=== PATIENT | female | born 1965 | race Caucasian/White ===

== ENCOUNTER 2017-02-23 15:23 | Inpatient (IN) | payer OTHER ==
--- NOTE | 2017-02-23 16:07 | PDOC ---
History of Present Illness - History of Present Illness Initial Comments: 02/23/17 16:11 [facility][id number] The patient is a 51 year old female, febrile (Tmax 104), arabic speaking, with a significant past medical history of hypertension and diabetes, who presents to the emergency department with high blood sugar since last night and fever today. She states her blood glucose was 260 last night and she woke up feeling dizzy and shaking this morning. She also reports diffuses body aches and nausea with breakfast. The patients mother reports her daughter complained of feeling feverish yesterday and had a dry cough and sore throat but didn't think anything of it. She denies chest pain, shortness of breath, headache. She denies diarrhea and constipation. She denies dysuria, frequency, urgency and hematuria. Allergies: NKDA Social history: denies toxic habits PCP - Dr. Brewer <Shanda Jurado - Last Filed: 02/23/17 17:17> <Jennifer Harris - Last Filed: 02/23/17 18:26> - General Chief Complaint: Blood Sugar Problem Stated Complaint: HIGH SUGAR Time Seen by Provider: 02/23/17 15:34 Past History <Shanda Jurado - Last Filed: 02/23/17 17:17> - Past Medical History Diabetes: Yes HTN: Yes Psychiatric Problems: Yes (depression) - Psycho/Social/Smoking Cessation Hx Anxiety: No Suicidal Ideation: No Smoking History: Never smoked Have you smoked in the past 12 months: No Information on smoking cessation initiated: No Hx Alcohol Use: No Drug/Substance Use Hx: No Substance Use Type: None <Jennifer Harris - Last Filed: 02/23/17 18:26> - Past Medical History Allergies/Adverse Reactions: Allergies Allergy/AdvReac Type Severity Reaction Status Date / Time No Known Allergies Allergy Verified 02/23/17 15:38 Review of Systems - Review of Systems Able to Perform ROS?: Yes Comments:: 02/23/17 16:12 GENERAL/CONSTITUTIONAL: (+) fever. No chills. No weakness. HEAD, EYES, EARS, NOSE AND THROAT: (+) sore throat. No change in vision. No ear pain or discharge. CARDIOVASCULAR: No chest pain or shortness of breath. RESPIRATORY: No cough, wheezing, or hemoptysis. GASTROINTESTINAL: No nausea, vomiting, diarrhea or constipation. GENITOURINARY: No dysuria, frequency, or change in urination. MUSCULOSKELETAL: No joint or muscle swelling or pain. No neck or back pain. SKIN: No rash NEUROLOGIC: (+) dizziness. No headache, loss of consciousness, or change in strength/sensation. ENDOCRINE: No increased thirst. No abnormal weight change. HEMATOLOGIC/LYMPHATIC: (+) high blood sugar. No anemia, easy bleeding, or history of blood clots. ALLERGIC/IMMUNOLOGIC: No hives or skin allergy. <Shanda Jurado - Last Filed: 02/23/17 17:17> *Physical Exam - Vital Signs Last Vital Signs Temp Pulse Resp BP Pulse Ox 102.9 F H 124 H 18 144/77 100 02/23/17 15:25 02/23/17 15:25 02/23/17 15:25 02/23/17 15:25 02/23/17 15:25 - Physical Exam Comments: 02/23/17 16:13 GENERAL: (+) Awake, alert, and confused. Ill appearing HEAD: (+) facial flush. No signs of trauma EYES: PERRLA, EOMI, sclera anicteric, conjunctiva clear ENT: (+) Dry mucosa. Oropharynx is macerated and erythematous. Auricles normal inspection, hearing grossly normal, nares patent, NECK: Normal ROM, supple, no lymphadenopathy, JVD, or masses LUNGS: (+)tachypneic. clear to auscultation bilaterally. No wheezes, and no crackles HEART: (+) Tachycardic rate and normal rhythm, normal S1 and S2, no murmurs, rubs or gallops ABDOMEN: Soft, nontender, normoactive bowel sounds. No guarding, no rebound. No masses EXTREMITIES: Normal range of motion, no edema. No clubbing or cyanosis. No cords, erythema, or tenderness NEUROLOGICAL: Cranial nerves II through XII grossly intact. Normal speech, normal gait SKIN: Warm, Dry, normal turgor, no rashes or lesions noted. <Shanda Jurado - Last Filed: 02/23/17 17:17> - Vital Signs Last Vital Signs Temp Pulse Resp BP Pulse Ox 102.9 F H 124 H 18 144/77 100 02/23/17 15:25 02/23/17 15:25 02/23/17 15:25 02/23/17 15:25 02/23/17 15:25 <Jennifer Harris - Last Filed: 02/23/17 18:26> ED Treatment Course - LABORATORY CBC & Chemistry Diagram: 02/23/17 16:20 02/23/17 16:20 <Shanda Jurado - Last Filed: 02/23/17 17:17> - LABORATORY CBC & Chemistry Diagram: 02/23/17 16:20 02/23/17 16:20 <Jennifer Harris - Last Filed: 02/23/17 18:26> *DC/Admit/Observation/Transfer <Shanda Jurado - Last Filed: 02/23/17 17:17> - Discharge Dispostion Admit: Yes <Jennifer Harris - Last Filed: 02/23/17 18:26> Diagnosis at time of Disposition: Hyperglycemia Fever Qualifiers: Fever type: unspecified Qualified Code(s): R50.9 - Fever, unspecified Sepsis Qualifiers: Sepsis type: sepsis due to unspecified organism Qualified Code(s): A41.9 - Sepsis, unspecified organism - Discharge Dispostion Condition at time of disposition: Guarded
[2017-02-23] MEDS ORDERED: ACETAMINOPHEN 1000 MG/100 ML VIAL (NON FORMULARY) IVPB ONE (16:19)
[2017-02-23] MEDS ORDERED: SODIUM CHLORIDE 1,000 ML IV STA ×2 (16:19→18:13)
[2017-02-23] MEDS ORDERED: ACETAMINOPHEN INJECTION 100 ML IVPB ONE (16:29)
[2017-02-23 16:57] LABS: MCH 30.3 pg (25.7-33.7); MCHC 33.1 g/dl (32.0-36.0); MEAN CELL VOLUME 91.6 fl (80-96); MEAN PLT VOLUME 10.8 fl (7.5-11.1); PLATELET COUNT 210 K/MM3 (134-434); RDW 14.4 % (11.6-15.6); WHITE BLOOD COUNT 22.9 K/mm3 (4.0-10.0)
[2017-02-23 17:00] LABS: URINE APPEARANCE CLEAR; URINE BILIRUBIN NEGATIVE (NEGATIVE); URINE COLOR YELLOW; URINE GLUCOSE (UA) 1+ (NEGATIVE); URINE KETONE 1+ (NEGATIVE); URINE LEUK ESTERASE NEGATIVE (NEGATIVE); URINE NITRITE NEGATIVE (NEGATIVE); URINE UROBILINOGEN NEGATIVE E.U./dl (0.2-1.0)
[2017-02-23 17:09] LABS: URINE BLOOD 1+ (NEGATIVE); URINE PROTEIN 2+ (NEGATIVE)
[2017-02-23 17:18] LABS: ALBUMIN 3.3 g/dl (3.4-5.0); ANION GAP 13 (8-16); CALCIUM 8.7 mg/dL (8.5-10.1); CO2 22 mmol/L (21-32); COCKROFT - GAULT 108.1625; CREATININE 0.9 mg/dL (0.55-1.02); GLUCOSE,RANDOM 194 mg/dL (74-106); SGOT/AST 26 U/L (15-37); SGPT/ALT 29 U/L (12-78)
[2017-02-23 17:22] LABS: ALK PHOS 87 U/L (45-117); BILIRUBIN,TOTAL 0.4 mg/dL (0.2-1.0); TOT PROT 7.8 g/dl (6.4-8.2); TROPONIN I < 0.02 ng/ml (0.00-0.05)
[2017-02-23 17:22] LABS: URINE MUCUS RARE; URINE RBC 2 /hpf (0-3); URINE WBC 1 /hpf (3-5)
[2017-02-23 17:31] LABS: ACETONE SERUM NEGATIVE (NEGATIVE)
[2017-02-23 17:34] LABS: OSMOLALITY,SERUM 279 mosm/kg (278-305)
[2017-02-23] MEDS ORDERED: PIPERACILLIN/TAZOB 3.375 GM 3.375 GM in DEXTROSE 5%-WATER - 50 ML IVPB ONE (18:12)
[2017-02-23] MEDS ORDERED: VANCOMYCIN 1,000 MG in DEXTROSE 5%-WATER - 250 ML IVPB ONE (18:12)
[2017-02-23] MEDS ORDERED: FLUCONAZOLE 100 MG TABLET (UD) PO ONE (18:42)
[2017-02-23] MEDS ORDERED: FLUCONAZOLE 100 MG TABLET (UD) ONE (18:53)
[2017-02-23] MEDS ORDERED: VANCOMYCIN 1 GRAM (PRE-DOCKED) 250 ML IVPB ONE (18:54)
[2017-02-23] MEDS ORDERED: PIPERACILLIN/TAZOB 3.375 GM 50 ML IVPB ONE (18:54)
--- NOTE | 2017-02-23 19:22 | HP ---
CHIEF COMPLAINT: flu symptoms PCP: Dr. Busch HISTORY OF PRESENT ILLNESS: 51 yr old woman with NIDDM, HTN, Depression, brought in by family because she was having "flu-like symptoms" this morning. She had nausea, fever, and dry intermitting mild cough, dizziness with a fasting BGM of 158 which is high for her(usual fasting bgm is 120-130's). She was in usual state of health yesterday evening. For past 2-3 months she has had burning with urination, past 3 days she noticed blood in her urine. For past 3 days she has noticed blood upon wiping after defecating, this is first episode. denies constipation/diarrhea, chest pain, palpitations, hemorrhoids, foul smelling urine, vaginal discharge, sob, difficulty swallowing, flank pain, vomiting. she has lost 4lbs over the past 2 months, unintentionally. Sees [employer] furnace every 6 months. denies sexual activity. ER course was notable for: (1) sepsis protocol, lactic acid 2.546, IVF (2) chest xray (3) vanc and zosyn iv (4) smyth placement Recent Travel: none PAST MEDICAL HISTORY: NIDDM HTN Depression - for past 1 yr since the of her father, in-patient tx at [facility] "few days" last year Hypothyroidism HLD PAST SURGICAL HISTORY: denies Social History: Smoking: never Alcohol: denies Drugs: denies Family History: denies HTN, DM, cancer, psych disorders. Allergies No Known Allergies Allergy (Verified 02/23/17 15:38) HOME MEDICATIONS: Home Medications Medication Instructions Recorded Amlodipine Besylate [Norvasc -] 5 mg PO DAILY 02/23/17 Benztropine Mesylate [Cogentin -] 2 mg PO BID 02/23/17 Calcium Carbonate/Vitamin D3 1 each PO BID 02/23/17 [Calcium 600+D Softgel] Cholecalciferol (Vitamin D3) 50,000 unit PO WEEKLY 02/23/17 [Vitamin D3] Divalproex Sodium 500 mg PO BID 02/23/17 Enalapril Maleate [Vasotec -] 5 mg PO DAILY 02/23/17 Levothyroxine Sodium [Levo-T] 25 mcg PO DAILY 02/23/17 Levothyroxine [Synthroid -] 50 mcg PO DAILY 02/23/17 Metformin HCl 500 mg PO TID 02/23/17 Perphenazine [Trilafon] 4 mg PO BID 02/23/17 Propranolol HCl [Inderal] 20 mg PO BID 02/23/17 Rosuvastatin Calcium [Crestor] 20 mg PO DAILY 02/23/17 REVIEW OF SYSTEMS CONSTITUTIONAL: Present: fever, Absent: chills, diaphoresis, generalized weakness, malaise, loss of appetite, weight change HEENT: Absent: rhinorrhea, nasal congestion, throat pain, throat swelling, difficulty swallowing, mouth swelling, ear pain, eye pain, visual changes CARDIOVASCULAR: Absent: chest pain, syncope, palpitations, irregular heart rate, lightheadedness , peripheral edema RESPIRATORY: Present: cough Absent: shortness of breath, dyspnea with exertion, orthopnea, wheezing, stridor , hemoptysis GASTROINTESTINAL: Present: nausea Absent: abdominal pain, abdominal distension, nausea, vomiting, diarrhea, constipation, melena, hematochezia GENITOURINARY: Present: dysuria, hematuria Absent: frequency, urgency, hesitancy, hematuria, flank pain, genital pain MUSCULOSKELETAL: Absent: myalgia, arthralgia, joint swelling, back pain, neck pain SKIN: Absent: rash, itching, pallor HEMATOLOGIC/IMMUNOLOGIC: Absent: easy bleeding, easy bruising, lymphadenopathy, frequent infections ENDOCRINE: Absent: unexplained weight gain, unexplained weight loss, heat intolerance, cold intolerance NEUROLOGIC: Absent: headache, focal weakness or paresthesias, dizziness, unsteady gait, seizure, mental status changes, bladder or bowel incontinence PSYCHIATRIC: Absent: anxiety, depression, suicidal or homicidal ideation, hallucinations. PHYSICAL EXAMINATION Vital Signs - 24 hr 02/23/17 02/23/17 02/23/17 15:23 15:25 16:07 Temperature 104.9 F H 102.9 F H Pulse Rate 117 H 124 H Pulse Rate [ 101 H Apical] Respiratory 20 18 20 Rate Blood Pressure 144/77 Blood Pressure 111/69 [Right Arm] O2 Sat by Pulse 97 100 100 Oximetry (%) 02/23/17 02/23/17 17:13 19:16 Temperature Pulse Rate Pulse Rate [ 109 H 93 H Apical] Respiratory 28 H 20 Rate Blood Pressure Blood Pressure 127/82 116/78 [Right Arm] O2 Sat by Pulse 96 98 Oximetry (%) GENERAL: Awake, alert, and fully oriented, in no acute distress. HEAD: Normal with no signs of trauma. no sinus tenderness. Face: cushingoid facies. blanching facial flushing in malar and forehead distributation. EYES: Pupils equal, round and reactive to light, mildly dilates 4-5mm pupils, extraocular movements intact, sclera anicteric, conjunctiva clear. No lid lag. EARS, NOSE, THROAT: Ears normal, nares patent, oropharynx with erythema. dry mucous membranes. no exudates. NECK: Normal range of motion, supple without lymphadenopathy, or masses. nontender neck. CHEST: upper b/l chest tenderness to palpation, sternum pain with palpation. LUNGS: Breath sounds equal, clear to auscultation bilaterally. No wheezes, and no crackles. No accessory muscle use. HEART: Regular rate and rhythm, normal S1 and S2 without murmur, rub or gallop. ABDOMEN: obese, Soft, mildly tender in llq and epigastrium, distended, normoactive bowel sounds, no guarding, no rebound, no masses. MUSCULOSKELETAL: Normal range of motion at all joints. No bony deformities or tenderness. No CVA tenderness. UPPER EXTREMITIES: 2+ pulses, warm, well-perfused. No cyanosis. No clubbing. No peripheral edema. LOWER EXTREMITIES: 2+ pulses, warm, well-perfused. No calf tenderness. No peripheral edema. NEUROLOGICAL: Cranial nerves II-XII intact. Normal speech. Normal gait. PSYCHIATRIC: Cooperative. Good eye contact. Appropriate mood and affect. SKIN: Warm, dry, normal turgor, no lesions noted, normal capillary refill. Laboratory Results - last 24 hr 02/23/17 02/23/17 02/23/17 16:20 16:20 16:20 WBC 22.9 H RBC 4.32 Hgb 13.1 Hct 39.5 MCV 91.6 MCHC 33.1 RDW 14.4 Plt Count 210 MPV 10.8 Neutrophils % 75.0 Lymphocytes % 16.0 Monocytes % 7.0 Eosinophils % 0.0 Basophils % 0.0 Band Neutrophils 2.0 Sodium 131 L Potassium 3.9 Chloride 96 L Carbon Dioxide 22 Anion Gap 13 BUN 14 Creatinine 0.9 Creat Clearance w eGFR > 60 POC Glucometer Random Glucose 194 H Serum Osmolality Lactic Acid 2.546 H* Calcium 8.7 Total Bilirubin 0.4 AST 26 ALT 29 Alkaline Phosphatase 87 Creatine Kinase 179 CK-MB (CK-2) < 1.000 Troponin I < 0.02 Total Protein 7.8 Albumin 3.3 L Urine Color Urine Appearance Urine pH Ur Specific Sutter Urine Protein Urine Glucose (UA) Urine Ketones Urine Blood Urine Nitrite Urine Bilirubin Urine Urobilinogen Ur Leukocyte Esterase Urine RBC Urine WBC Urine Mucus Acetone, Qual Blood Type Antibody Screen Spec Expiration Date 02/23/17 02/23/17 02/23/17 16:20 16:20 16:22 WBC RBC Hgb Hct MCV MCHC RDW Plt Count MPV Neutrophils % Lymphocytes % Monocytes % Eosinophils % Basophils % Band Neutrophils Sodium Potassium Chloride Carbon Dioxide Anion Gap BUN Creatinine Creat Clearance w eGFR POC Glucometer [id number] Random Glucose Serum Osmolality 279 Lactic Acid Calcium Total Bilirubin AST ALT Alkaline Phosphatase Creatine Kinase CK-MB (CK-2) Troponin I Total Protein Albumin Urine Color Urine Appearance Urine pH Ur Specific Sutter Urine Protein Urine Glucose (UA) Urine Ketones Urine Blood Urine Nitrite Urine Bilirubin Urine Urobilinogen Ur Leukocyte Esterase Urine RBC Urine WBC Urine Mucus Acetone, Qual Negative L Blood Type Cancelled Antibody Screen Cancelled Spec Expiration Date Cancelled 02/23/17 16:47 WBC RBC Hgb Hct MCV MCHC RDW Plt Count MPV Neutrophils % Lymphocytes % Monocytes % Eosinophils % Basophils % Band Neutrophils Sodium Potassium Chloride Carbon Dioxide Anion Gap BUN Creatinine Creat Clearance w eGFR POC Glucometer Random Glucose Serum Osmolality Lactic Acid Calcium Total Bilirubin AST ALT Alkaline Phosphatase Creatine Kinase CK-MB (CK-2) Troponin I Total Protein Albumin Urine Color Yellow Urine Appearance Clear Urine pH 5.0 Ur Specific Sutter 1.024 Urine Protein 2+ H Urine Glucose (UA) 1+ H Urine Ketones 1+ H Urine Blood 1+ H Urine Nitrite Negative Urine Bilirubin Negative Urine Urobilinogen Negative Ur Leukocyte Esterase Negative Urine RBC 2 Urine WBC 1 Urine Mucus Rare Acetone, Qual Blood Type Antibody Screen Spec Expiration Date Active Medications Acetaminophen (Tylenol -) 650 mg PO Q6H PRN PRN Reason: FEVER OR PAIN Amlodipine Besylate (Norvasc -) 5 mg PO DAILY [facility] Benztropine Mesylate (Cogentin -) 2 mg PO BID [facility] Last Admin: 02/23/17 22:42 Dose: 2 mg Calcium Carbonate/Cholecalciferol (Os-Kelvin 500+D -) 1 tab PO BID [facility] Last Admin: 02/23/17 22:42 Dose: 1 tab Divalproex Sodium (Depakote -) 500 mg PO BID [facility] Last Admin: 02/23/17 22:42 Dose: 500 mg Enalapril Maleate (Vasotec -) 5 mg PO DAILY [facility] Ergocalciferol (Drisdol -) 50,000 unit PO Mo@10 [facility] Sodium Chloride (Normal Saline -) 1,000 mls @ 125 mls/hr IV ASDIR [facility] Insulin Aspart (Novolog Vial Sliding Scale -) 1 vial SQ [facility] PRN Reason: Protocol Last Admin: 02/23/17 22:43 Dose: 2 units Levothyroxine Sodium (Synthroid -) 25 mcg PO DAILY@0700 [facility] Levothyroxine Sodium (Synthroid -) 50 mcg PO DAILY@0700 [facility] Penicillin V Potassium (Pen Vee K -) 500 mg PO TID [facility] Last Admin: 02/23/17 23:55 Dose: 500 mg Perphenazine (Trilafon) 4 mg PO BID [facility] Last Admin: 02/23/17 22:42 Dose: 4 mg Propranolol HCl (Inderal -) 20 mg PO BID [facility] Last Admin: 02/23/17 22:43 Dose: 20 mg Rosuvastatin Calcium (Crestor -) 20 mg PO DAILY [facility] ASSESSMENT/PLAN: 51 yr old woman with HTN, NIDDM, depression presents with fever and nausea, found to have elevated wbc, fever 104.9, lactic acidosis, admitted for sepsis. - rapid strep ag positive - can likely remove smyth in the AM if making adequate urine #Sepsis from group a strep pharyngitis (fever, tachycardia, wbc, source) - Penicillin V 500mg q8hr for 10 days - IVF NS @125mls - repeat labs in the AM - monitor vitals - tylenol po for fevers - blood/urine cxs pending - cephacol mm prn q6hr for throat pain #Abdominal pain - FOBT pending - consider imaging if continues to complain of abdominal pain, low suspicion for diverticulitis, GIB or GI malignancy, H/H currently normal, trend in the AM - outpatient referral for GI follow-up #NIDDM - HbA1c - hold metform - NISS, and BGM at [facility] - diabetic diet #Depression - currently denies symptoms/SI or HI, monitor - depakote 500mg po bid - cogentin 2mg po bid - trilafon 4mg po bid #HTN - propranolol 20mg po bid - vasotec 5mg po daily - norvasc 5mg po daily #Hypothyroidism - levothyroxine 75mcg po daily #Obesity - provide healthy eating habits and exercise for diabetic pts upon discharge #diet: low sodium/diabetic DVT - scd's pending FOBT Visit type - Emergency Visit Emergency Visit: Yes ED Registration Date: 02/23/17 Care time: The patient presented to the Emergency Department on the above date and was hospitalized for further evaluation of their emergent condition. - New Patient This patient is new to me today: Yes Date on this admission: 02/23/17 - Critical Care Critical Care patient: No
[2017-02-23] MEDS ORDERED: metFORMIN HCL 500 MG TABLET (FP) PO SCH (21:15)
[2017-02-23] MEDS ORDERED: BENZTROPINE MESYLATE 1 MG TABLET (FP) PO SCH (22:00)
[2017-02-23] MEDS ORDERED: ACETAMINOPHEN 325 MG TABLET (FP) PO PRN (22:19)
[2017-02-23] MEDS: BENZTROPINE MESYLATE 2 MG TABLET PO SCH (22:42)
[2017-02-23] MEDS: PERPHENAZINE 4 MG TABLET PO SCH (22:42)
[2017-02-23] MEDS: DIVALPROEX SODIUM 500 MG TABLET E.C. PO SCH (22:42)
[2017-02-23] MEDS: CALCIUM 500MG/VIT-D 200 UNITS COMBO TABLET (FP) PO SCH (22:42)
[2017-02-23] MEDS: PROPRANOLOL HCL 10 MG TABLET (FP) PO SCH (22:43)
[2017-02-23] MEDS: INSULIN SLIDING SCALE (NOVOLOG) 1 VIAL SQ SCH (22:43)
--- NOTE | 2017-02-23 23:12 | PN ---
<Codi Irby - Last Filed: 02/23/17 23:12> Teaching Attending Note Name of Resident: Cody Mauricio <Kali Montenegro - Last Filed: 02/24/17 00:03> Teaching Attending Note ATTENDING PHYSICIAN STATEMENT I saw and evaluated the patient. I reviewed the resident's note and discussed the case with the resident. I agree with the resident's findings and plan as documented. SUBJECTIVE: 51 year old female presents to ER for evaluation of malaise, fever, myalgia, cough, and sore throat x24h. PMH diabetes, hypertension, hyperthyroidism, hyperlipidemia, questionable history of bipolar disorder Surgical History: None Allergies: None Social: Denies smoking. Denies drugs. Denies alcohol. Family history: Noncontributory Medications: Home Medication List Medication Instructions Recorded Confirmed Type Amlodipine Besylate [Norvasc -] 5 mg PO DAILY 02/23/17 02/23/17 History Benztropine Mesylate [Cogentin -] 2 mg PO BID 02/23/17 02/23/17 History Calcium Carbonate/Vitamin D3 1 each PO BID 02/23/17 02/23/17 History [Calcium 600+D Softgel] Cholecalciferol (Vitamin D3) 50,000 unit PO WEEKLY 02/23/17 02/23/17 History [Vitamin D3] Divalproex Sodium 500 mg PO BID 02/23/17 02/23/17 History Enalapril Maleate [Vasotec -] 5 mg PO DAILY 02/23/17 02/23/17 History Levothyroxine Sodium [Levo-T] 25 mcg PO DAILY 02/23/17 02/23/17 History Levothyroxine [Synthroid -] 50 mcg PO DAILY 02/23/17 02/23/17 History Metformin HCl 500 mg PO TID 02/23/17 02/23/17 History Perphenazine [Trilafon] 4 mg PO BID 02/23/17 02/23/17 History Propranolol HCl [Inderal] 20 mg PO BID 02/23/17 02/23/17 History Rosuvastatin Calcium [Crestor] 20 mg PO DAILY 02/23/17 02/23/17 History Active Medications Generic Name Dose Route Start Last Admin Trade Name Freq PRN Reason Stop Dose Admin Acetaminophen 650 mg 02/23/17 22:19 Tylenol - PO Q6H PRN FEVER OR PAIN Amlodipine Besylate 5 mg 02/24/17 10:00 Norvasc - PO DAILY [facility] Benztropine Mesylate 2 mg 02/23/17 22:00 02/23/17 22:42 Cogentin - PO 2 mg BID [facility] Administration Calcium Carbonate/Cholecalciferol 1 tab 02/23/17 22:00 02/23/17 22:42 Os-Kelvin 500+D - PO 1 tab BID [facility] Administration Divalproex Sodium 500 mg 02/23/17 22:00 02/23/17 22:42 Depakote - PO 500 mg BID [facility] Administration Enalapril Maleate 5 mg 02/24/17 10:00 Vasotec - PO DAILY [facility] Ergocalciferol 50,000 unit 03/01/17 10:00 Drisdol - PO Mo@10 [facility] Sodium Chloride 1,000 mls @ 125 mls/hr 02/23/17 20:45 Normal Saline - IV ASDIR [facility] Insulin Aspart 1 vial 02/23/17 22:00 02/23/17 22:43 Novolog Vial Sliding Scale - SQ 2 units ACHS [facility] Administration Protocol Levothyroxine Sodium 25 mcg 02/24/17 07:00 Synthroid - PO DAILY@0700 [facility] Levothyroxine Sodium 50 mcg 02/24/17 07:00 Synthroid - PO DAILY@0700 [facility] Metformin HCl 500 mg 02/23/17 21:15 02/23/17 22:42 Glucophage - PO 500 mg TIDAC [facility] Administration Penicillin V Potassium 500 mg 02/23/17 23:15 Pen Vee K - PO Q8H [facility] Perphenazine 4 mg 02/23/17 22:00 02/23/17 22:42 Trilafon PO 4 mg BID [facility] Administration Propranolol HCl 20 mg 02/23/17 22:00 02/23/17 22:43 Inderal - PO 20 mg BID [facility] Administration Rosuvastatin Calcium 20 mg 02/24/17 10:00 Crestor - PO DAILY [facility] OBJECTIVE: Vital Signs: Last Vital Signs Temp Pulse Resp BP Pulse Ox 102.9 F H 95 H 22 136/65 97 02/23/17 15:25 02/23/17 20:54 02/23/17 20:54 02/23/17 20:54 02/23/17 20:54 GENERAL: Awake, alert, and fully oriented, in no acute distress HEENT: Atraumatic. PERRLA, EOMI. Moist mucosa. No JVD LUNGS: No distress, speaks full sentences, clear to auscultation bilaterally HEART: Regular rate and rhythm, normal S1 and S2, no murmurs, rubs or gallops, peripheral pulses normal and equal bilaterally. ABDOMEN: (+) Tenderness on palpation of epigastric area and lower left quadrant. No guarding, no rebound. No masses EXTREMITIES: Normal inspection, Normal range of motion, no edema. No clubbing or cyanosis. NEUROLOGICAL: Cranial nerves II through XII grossly intact. Normal speech, normal gait, no focal sensorimotor deficits SKIN: Warm, Dry, normal turgor, no rashes or lesions noted. Labs: CBCD WBC 22.9 K/mm3 (4.0-10.0) H 02/23/17 16:20 RBC 4.32 M/mm3 (3.60-5.2) 02/23/17 16:20 Hgb 13.1 GM/dL (10.7-15.3) 02/23/17 16:20 Hct 39.5 % (32.4-45.2) 02/23/17 16:20 MCV 91.6 fl (80-96) 02/23/17 16:20 MCHC 33.1 g/dl (32.0-36.0) 02/23/17 16:20 RDW 14.4 % (11.6-15.6) 02/23/17 16:20 Plt Count 210 K/MM3 (134-434) 02/23/17 16:20 MPV 10.8 fl (7.5-11.1) 02/23/17 16:20 CMP Sodium 131 mmol/L (136-145) L 02/23/17 16:20 Potassium 3.9 mmol/L (3.5-5.1) 02/23/17 16:20 Chloride 96 mmol/L (98-107) L 02/23/17 16:20 Carbon Dioxide 22 mmol/L (21-32) 02/23/17 16:20 Anion Gap 13 (8-16) 02/23/17 16:20 BUN 14 mg/dL (7-18) 02/23/17 16:20 Creatinine 0.9 mg/dL (0.55-1.02) 02/23/17 16:20 Creat Clearance w eGFR > 60 (>60) 02/23/17 16:20 Calcium 8.7 mg/dL (8.5-10.1) 02/23/17 16:20 Total Bilirubin 0.4 mg/dL (0.2-1.0) 02/23/17 16:20 AST 26 U/L (15-37) 02/23/17 16:20 ALT 29 U/L (12-78) 02/23/17 16:20 Alkaline Phosphatase 87 U/L (45-117) 02/23/17 16:20 Total Protein 7.8 g/dl (6.4-8.2) 02/23/17 16:20 Albumin 3.3 g/dl (3.4-5.0) L 02/23/17 16:20 Throat culture positive for hemolytic strep. Imaging: CXR-no acute pulmonary disease ASSESSMENT AND PLAN: 1. 51 year old female with sepsis secondary to streptococcal pharyngitis. - Penicillin B administered - Repeat lactate levels in AM - IVF - Hemoglobin A1C Admit to med surg. Documentation prepared by Kali Montenegro, acting as medical reviewer for Dr. Mahamed MD.
[2017-02-23] MEDS: PENICILLIN V POTASSIUM 500 MG TABLET PO SCH (23:55)
[2017-02-24 00:43] VITALS: BMI 34.3
[2017-02-24] MEDS ORDERED: BENZOCAINE/MENTH/CETYLPYRD CL 1 EACH LOZENGE MM PRN (05:13)
[2017-02-24] MEDS: INSULIN SLIDING SCALE (NOVOLOG) 1 VIAL SQ SCH ×4 (06:09→21:16)
[2017-02-24] MEDS: SODIUM CHLORIDE 1,000 ML IV SCH ×4 (06:09→22:46)
[2017-02-24] MEDS: PENICILLIN V POTASSIUM 500 MG TABLET PO SCH (06:09)
[2017-02-24] MEDS: LEVOTHYROXINE NA 50 MCG TABLET (FP) PO SCH (06:13)
[2017-02-24] MEDS: LEVOTHYROXINE NA 25 MCG TABLET (FP) PO SCH (06:13)
[2017-02-24 07:51] LABS: BASOPHIL 0.3 % (0-2.0); MCH 31.2 pg (25.7-33.7); MCHC 33.8 g/dl (32.0-36.0); MEAN CELL VOLUME 92.3 fl (80-96); MEAN PLT VOLUME 9.9 fl (7.5-11.1); NEUTROPHILS 76.9 % (42.8-82.8); PLATELET COUNT 181 K/MM3 (134-434); RDW 14.6 % (11.6-15.6); WHITE BLOOD COUNT 22.8 K/mm3 (4.0-10.0)
[2017-02-24 08:08] LABS: INR 1.51 (0.82-1.09); PROTHROMBIN TIME (PATIENT) 16.8 SEC (9.98-11.88)
--- NOTE | 2017-02-24 08:13 | EKG ---
Test Reason : Blood Pressure : / mmHG Vent. Rate : 112 BPM Atrial Rate : 112 BPM P-R Int : 128 ms QRS Dur : 086 ms QT Int : 322 ms P-R-T Axes : 044 -23 -05 degrees QTc Int : 439 ms SINUS TACHYCARDIA POSSIBLE LEFT ATRIAL ENLARGEMENT NONSPECIFIC T WAVE ABNORMALITY ABNORMAL ECG NO PREVIOUS ECGS AVAILABLE Confirmed by ROSS LYNN, ANTONIO ([id number]) on 02/24/2017 8:13:09 AM Referred By: Confirmed By:ANTONIO HAWKINS MD
[2017-02-24 08:40] LABS: CALCIUM 8.4 mg/dL (8.5-10.1); COCKROFT - GAULT 160.6415; CREATININE 0.6 mg/dL (0.55-1.02); MAGNESIUM 1.5 mg/dL (1.8-2.4); PHOSPHOROUS 2.3 mg/dL (2.5-4.9)
[2017-02-24] MEDS ORDERED: ENOXAPARIN NA (PORCINE) 40 MG/0.4 ML DISP.SYRIN SQ SCH (10:00)
[2017-02-24] MEDS ORDERED: ROSUVASTATIN CA 10 MG TABLET (FP) ONE (10:10)
[2017-02-24] MEDS ORDERED: PT OWN MED DRAWER 7, Y5N ONE ×3 (10:12→21:18)
[2017-02-24] MEDS: CALCIUM 500MG/VIT-D 200 UNITS COMBO TABLET (FP) PO SCH ×2 (10:18→21:19)
[2017-02-24] MEDS: amLODIPine BESYLATE 5 MG TABLET (FP) PO SCH (10:19)
[2017-02-24] MEDS: DIVALPROEX SODIUM 500 MG TABLET E.C. PO SCH ×2 (10:19→21:19)
[2017-02-24] MEDS: ROSUVASTATIN CA 20 MG TABLET (FP) PO SCH (10:19)
[2017-02-24] MEDS: BENZTROPINE MESYLATE 2 MG TABLET PO SCH ×2 (10:20→21:19)
[2017-02-24] MEDS: PROPRANOLOL HCL 10 MG TABLET (FP) PO SCH ×2 (10:21→21:19)
[2017-02-24] MEDS: PERPHENAZINE 4 MG TABLET PO SCH ×2 (10:22→21:19)
[2017-02-24] MEDS: ENALAPRIL MALEATE 5 MG TABLET (FP) PO SCH (10:23)
[2017-02-24] MEDS ORDERED: INSULIN (NOVOLOG) ASPART 100 UNITS/ML 10ML VIAL ONE ×2 (12:06→16:57)
[2017-02-24] MEDS: LEVOFLOXACIN 750 MG IVPB 150 ML IVPB SCH (12:18)
--- NOTE | 2017-02-24 15:55 | PN ---
Physical Exam: SUBJECTIVE: Patient seen and examined, feeling better, denies fever, chills, n, v, abdominal pain, hematuria or dysuria. Admits to minor odynophagia. OBJECTIVE: Vital Signs Period Temp Pulse Resp BP Sys/Chou Pulse Ox Last 24 Hr 98.4 F-100.2 F 93-106 18-22 111-138/61-78 97-99 GENERAL: The patient is obese, awake, alert, and fully oriented, in no acute distress. HEAD: Normal with no signs of trauma. EYES: PERRL, extraocular movements intact, sclera anicteric, conjunctiva clear. No ptosis. ENT: Ears normal, nares patent, oropharynx clear without exudates, moist mucous membranes. NECK: Trachea midline, full range of motion, supple. LUNGS: decreased breath sounds equal, clear to auscultation bilaterally, no wheezes, no crackles, no accessory muscle use. HEART: Regular rate and rhythm, S1, S2 without murmur, rub or gallop. ABDOMEN: Soft, nontender, nondistended, normoactive bowel sounds, no guarding, no rebound, no hepatosplenomegaly, no masses. EXTREMITIES: 2+ pulses, warm, well-perfused, no edema. NEUROLOGICAL: Cranial nerves II through XII grossly intact. Normal speech, gait not observed. PSYCH: Normal mood, normal affect. SKIN: Warm, dry, normal turgor, no rashes or lesions noted Laboratory Results - last 24 hr 02/23/17 02/23/17 02/24/17 18:36 22:41 06:08 WBC RBC Hgb Hct MCV MCHC RDW Plt Count MPV Neutrophils % Lymphocytes % Monocytes % Eosinophils % Basophils % INR PTT (Actin FS) Sodium Potassium Chloride Carbon Dioxide Anion Gap BUN Creatinine POC Glucometer 200 154 Random Glucose Hemoglobin A1c % Lactic Acid 1.938 Calcium Phosphorus Magnesium Stool Occult Blood 02/24/17 02/24/17 02/24/17 06:15 06:15 06:15 WBC 22.8 H RBC 3.82 Hgb 11.9 Hct 35.3 MCV 92.3 MCHC 33.8 RDW 14.6 Plt Count 181 MPV 9.9 Neutrophils % 76.9 Lymphocytes % 14.2 Monocytes % 8.6 Eosinophils % 0.0 Basophils % 0.3 D INR 1.51 H PTT (Actin FS) 26.0 L Sodium 137 Potassium 3.7 Chloride 101 Carbon Dioxide 22 Anion Gap 14 BUN 9 D Creatinine 0.6 D POC Glucometer Random Glucose 148 H D Hemoglobin A1c % Lactic Acid Calcium 8.4 L Phosphorus 2.3 L Magnesium 1.5 L Stool Occult Blood 02/24/17 02/24/17 02/24/17 06:15 08:00 12:02 WBC RBC Hgb Hct MCV MCHC RDW Plt Count MPV Neutrophils % Lymphocytes % Monocytes % Eosinophils % Basophils % INR PTT (Actin FS) Sodium Potassium Chloride Carbon Dioxide Anion Gap BUN Creatinine POC Glucometer 400 Random Glucose Hemoglobin A1c % 10.9 H Lactic Acid Calcium Phosphorus Magnesium Stool Occult Blood Negative Active Medications Generic Name Dose Route Start Last Admin Trade Name Freq PRN Reason Stop Dose Admin Acetaminophen 650 mg 02/23/17 22:19 02/24/17 12:22 Tylenol - PO 650 mg Q6H PRN Administration FEVER OR PAIN Amlodipine Besylate 5 mg 02/24/17 10:00 02/24/17 10:19 Norvasc - PO 5 mg DAILY FRANKLYN Administration Benzocaine/Menthol 1 each 02/24/17 05:13 Cepacol Lozenge - MM Q6H PRN SORE THROAT Benztropine Mesylate 2 mg 02/23/17 22:00 02/24/17 10:20 Cogentin - PO 2 mg BID FRANKLYN Administration Calcium Carbonate/Cholecalciferol 1 tab 02/23/17 22:00 02/24/17 10:18 Os-Kelvin 500+D - PO 1 tab BID FRANKLYN Administration Divalproex Sodium 500 mg 02/23/17 22:00 02/24/17 10:19 Depakote - PO 500 mg BID FRANKLYN Administration Enalapril Maleate 5 mg 02/24/17 10:00 02/24/17 10:23 Vasotec - PO 5 mg DAILY FRANKLYN Administration Ergocalciferol 50,000 unit 03/01/17 10:00 Drisdol - PO Mo@10 FRANKLYN Sodium Chloride 1,000 mls @ 125 mls/hr 02/23/17 20:45 02/24/17 14:15 Normal Saline - IV 125 mls/hr ASDIR FRANKLYN Administration Levofloxacin 150 mls @ 100 mls/hr 02/24/17 11:30 02/24/17 12:18 Levaquin 750 Mg Premixed Ivpb - IVPB 100 mls/hr DAILY FRANKLYN Administration Insulin Aspart 1 vial 02/23/17 22:00 02/24/17 12:08 Novolog Vial Sliding Scale - SQ 10 units [facility] FRANKLYN Administration Protocol Levothyroxine Sodium 25 mcg 02/24/17 07:00 02/24/17 06:13 Synthroid - PO 25 mcg DAILY@0700 FRANKLYN Administration Levothyroxine Sodium 50 mcg 02/24/17 07:00 02/24/17 06:13 Synthroid - PO 50 mcg DAILY@0700 FRANKLYN Administration Perphenazine 4 mg 02/23/17 22:00 02/24/17 10:22 Trilafon PO 4 mg BID FRANKLYN Administration Propranolol HCl 20 mg 02/23/17 22:00 02/24/17 10:21 Inderal - PO 20 mg BID FRANKLYN Administration Rosuvastatin Calcium 20 mg 02/24/17 10:00 02/24/17 10:19 Crestor - PO 20 mg DAILY FRANKLYN Administration ASSESSMENT/PLAN: This is a 51 year old female with a past medical history of diabetes, htn, depression presented with fever, chills, n, v, found to be septic secondary to strep throat. #sepsis secondary to group A strep pharyngitis: -sepsis protocol activated; IVF; stat dose of IV antibiotics; lactic acid trended down after fluids -rapid strep test positive -blood and urine cultures pending -continue with IV Levaquin 750mg qd -cephacol mm prn q6hr for throat pain #Abdominal pain : resolved #admits to dark stools x3 days -FOBT negative -rectal exam +for external hemorrhoids: no mass felt -she has never had colonoscopy; f.u as outpatient #NIDDM - HbA1c 10.9 - NISS, and BGM at [facility] - diabetic diet #Depression - currently denies symptoms/SI or HI, monitor - depakote 500mg po bid - cogentin 2mg po bid - trilafon 4mg po bid #HTN - propranolol 20mg po bid - vasotec 5mg po daily - norvasc 5mg po daily #Hypothyroidism - levothyroxine 75mcg po daily #Obesity - provide healthy eating habits and exercise for diabetic pts upon discharge FEN: Fluids: po Electrolytes: wnl Diet: diabetic VTE prophylaxis: lovenox Disposition: IV antibiotic . cultures pending Visit type - Emergency Visit Emergency Visit: Yes ED Registration Date: 02/23/17 Care time: The patient presented to the Emergency Department on the above date and was hospitalized for further evaluation of their emergent condition. - New Patient This patient is new to me today: Yes Date on this admission: 02/24/17 - Critical Care Critical Care patient: No
--- NOTE | 2017-02-24 17:59 | PN ---
Teaching Attending Note Name of Resident: Susana Perez ATTENDING PHYSICIAN STATEMENT I saw and evaluated the patient. I reviewed the resident's note and discussed the case with the resident. I agree with the resident's findings and plan as documented. SUBJECTIVE: Sore throat is improving. OBJECTIVE: Vital Signs Period Temp Pulse Resp BP Sys/Chou Pulse Ox Last 24 Hr 98.4 F-100.2 F 93-106 18-22 111-138/61-78 97-99 PHARYNX: Erythematous HEART: S1S2, RRR LUNGS: Clear ABDOMEN: Obese, soft, non-tender, non-distended, normal BS EXTREMITIES: No edema ASSESSMENT AND PLAN: This is a 51-year-old woman with a history of HTN, type 2 DM, depression who presented with fever and nausea. 1. Sepsis secondary to group A strep pharyngitis - Change antibiotics to Levaquin - Continue IV fluid - Monitor temp, WBC - Follow up blood cultures 2. Type 2 DM - Metformin held - Continue Novolog sliding scale 3. Depression - Continue Depakote, Trilafon, Cogentin 4. HTN - Continue Inderal, Norvasc, Vasotec 5. Hypothyroidism - Continue Synthroid 6. Obesity
[2017-02-25] MEDS: INSULIN SLIDING SCALE (NOVOLOG) 1 VIAL SQ SCH ×4 (06:13→22:05)
[2017-02-25] MEDS: LEVOTHYROXINE NA 25 MCG TABLET (FP) PO SCH (06:14)
[2017-02-25] MEDS: LEVOTHYROXINE NA 50 MCG TABLET (FP) PO SCH (06:14)
[2017-02-25] MEDS: SODIUM CHLORIDE 1,000 ML IV SCH ×2 (06:40→20:45)
[2017-02-25 08:34] LABS: BASOPHIL 0.6 % (0-2.0); EOSINOPHIL 0.1 % (0-4.5); MCH 30.4 pg (25.7-33.7); MCHC 32.9 g/dl (32.0-36.0); MEAN CELL VOLUME 92.3 fl (80-96); NEUTROPHILS 67.7 % (42.8-82.8); PLATELET COUNT 178 K/MM3 (134-434); RDW 14.4 % (11.6-15.6); WHITE BLOOD COUNT 20.8 K/mm3 (4.0-10.0)
[2017-02-25 08:56] LABS: CALCIUM 9.1 mg/dL (8.5-10.1); COCKROFT - GAULT 160.6415; CREATININE 0.6 mg/dL (0.55-1.02)
[2017-02-25] MEDS ORDERED: ROSUVASTATIN CA 10 MG TABLET (FP) ONE (09:29)
[2017-02-25] MEDS ORDERED: PT OWN MED DRAWER 7, Y5N ONE (09:30)
[2017-02-25] MEDS: LEVOFLOXACIN 750 MG IVPB 150 ML IVPB SCH (09:33)
[2017-02-25] MEDS: DIVALPROEX SODIUM 500 MG TABLET E.C. PO SCH ×2 (09:34→22:08)
[2017-02-25] MEDS: CALCIUM 500MG/VIT-D 200 UNITS COMBO TABLET (FP) PO SCH ×2 (09:34→22:07)
[2017-02-25] MEDS: ROSUVASTATIN CA 20 MG TABLET (FP) PO SCH (09:34)
[2017-02-25] MEDS: PROPRANOLOL HCL 10 MG TABLET (FP) PO SCH ×2 (09:35→22:10)
[2017-02-25] MEDS: PERPHENAZINE 4 MG TABLET PO SCH ×2 (09:37→22:11)
[2017-02-25] MEDS: BENZTROPINE MESYLATE 2 MG TABLET PO SCH ×2 (09:37→22:11)
[2017-02-25] MEDS: ENALAPRIL MALEATE 5 MG TABLET (FP) PO SCH (09:38)
[2017-02-25] MEDS: amLODIPine BESYLATE 5 MG TABLET (FP) PO SCH (09:39)
[2017-02-25] MEDS: INSULIN DETEMIR 100 UNITS/ML MDV SQ SCH (09:44)
[2017-02-25] MEDS ORDERED: INSULIN (NOVOLOG) ASPART 100 UNITS/ML 10ML VIAL ONE ×2 (11:06→22:06)
--- NOTE | 2017-02-25 16:14 | PN ---
Physical Exam: SUBJECTIVE: Patient seen and examined afebrile, wbc count still elevated, some throat pain. OBJECTIVE: Vital Signs Period Temp Pulse Resp BP Sys/Chou Pulse Ox Last 24 Hr 97.9 F-99.3 F 91-101 20-20 111-136/60-83 98-100 GENERAL: The patient is awake, alert, and fully oriented, in no acute distress. HEAD: Normal with no signs of trauma. EYES: PERRL, extraocular movements intact, sclera anicteric, conjunctiva clear. No ptosis. ENT:oropharyngeal cavity erythematous with white spots NECK: Trachea midline, full range of motion, supple. LUNGS: Breath sounds equal, clear to auscultation bilaterally, no wheezes, no crackles, no accessory muscle use. HEART: Regular rate and rhythm, S1, S2 without murmur, rub or gallop. ABDOMEN: Soft, nontender, nondistended, normoactive bowel sounds, no guarding, no rebound, no hepatosplenomegaly, no masses. EXTREMITIES: 2+ pulses, warm, well-perfused, no edema. NEUROLOGICAL: Cranial nerves II through XII grossly intact. Normal speech, gait not observed. PSYCH: Normal mood, normal affect. SKIN: Warm, dry, normal turgor, no rashes or lesions noted Laboratory Results - last 24 hr 02/24/17 02/24/17 02/25/17 16:50 20:58 06:11 WBC RBC Hgb Hct MCV MCHC RDW Plt Count MPV Neutrophils % Lymphocytes % Monocytes % Eosinophils % Basophils % Sodium Potassium Chloride Carbon Dioxide Anion Gap BUN Creatinine POC Glucometer 161 141 141 Random Glucose Calcium 02/25/17 02/25/17 02/25/17 07:40 07:40 09:44 WBC 20.8 H RBC 4.08 Hgb 12.4 Hct 37.6 MCV 92.3 MCHC 32.9 RDW 14.4 Plt Count 178 MPV 10.0 Neutrophils % 67.7 Lymphocytes % 22.4 D Monocytes % 9.2 Eosinophils % 0.1 D Basophils % 0.6 Sodium 139 Potassium 3.9 Chloride 102 Carbon Dioxide 26 Anion Gap 11 BUN 5 L D Creatinine 0.6 POC Glucometer 228 Random Glucose 141 H Calcium 9.1 02/25/17 11:04 WBC RBC Hgb Hct MCV MCHC RDW Plt Count MPV Neutrophils % Lymphocytes % Monocytes % Eosinophils % Basophils % Sodium Potassium Chloride Carbon Dioxide Anion Gap BUN Creatinine POC Glucometer 260 Random Glucose Calcium Active Medications Generic Name Dose Route Start Last Admin Trade Name Rocío PRN Reason Stop Dose Admin Acetaminophen 650 mg 02/23/17 22:19 02/24/17 12:22 Tylenol - PO 650 mg Q6H PRN Administration FEVER OR PAIN Amlodipine Besylate 5 mg 02/24/17 10:00 02/25/17 09:39 Norvasc - PO 5 mg DAILY FRANKLYN Administration Benzocaine/Menthol 1 each 02/24/17 05:13 Cepacol Lozenge - MM Q6H PRN SORE THROAT Benztropine Mesylate 2 mg 02/23/17 22:00 02/25/17 09:37 Cogentin - PO 2 mg BID FRANKLYN Administration Calcium Carbonate/Cholecalciferol 1 tab 02/23/17 22:00 02/25/17 09:34 Os-Kelvin 500+D - PO 1 tab BID FRANKLYN Administration Divalproex Sodium 500 mg 02/23/17 22:00 02/25/17 09:34 Depakote - PO 500 mg BID FRANKLYN Administration Enalapril Maleate 5 mg 02/24/17 10:00 02/25/17 09:38 Vasotec - PO 5 mg DAILY FRANKLYN Administration Ergocalciferol 50,000 unit 03/01/17 10:00 Drisdol - PO Mo@10 [facility] Sodium Chloride 1,000 mls @ 125 mls/hr 02/23/17 20:45 02/25/17 06:40 Normal Saline - IV 125 mls/hr ASDIR FRANKLYN Administration Levofloxacin 150 mls @ 100 mls/hr 02/24/17 11:30 02/25/17 09:33 Levaquin 750 Mg Premixed Ivpb - IVPB 100 mls/hr DAILY [facility] Administration Insulin Aspart 1 vial 02/23/17 22:00 02/25/17 11:06 Novolog Vial Sliding Scale - SQ 6 units ACHS [facility] Administration Protocol Insulin Detemir 10 units 02/25/17 08:00 02/25/17 09:44 Levemir Vial SQ 10 unit AM FRANKLYN Administration Levothyroxine Sodium 25 mcg 02/24/17 07:00 02/25/17 06:14 Synthroid - PO 25 mcg DAILY@0700 [facility] Administration Levothyroxine Sodium 50 mcg 02/24/17 07:00 02/25/17 06:14 Synthroid - PO 50 mcg DAILY@0700 FRANKLYN Administration Perphenazine 4 mg 02/23/17 22:00 02/25/17 09:37 Trilafon PO 4 mg BID FRANKLYN Administration Propranolol HCl 20 mg 02/23/17 22:00 02/25/17 09:35 Inderal - PO 20 mg BID FRANKLYN Administration Rosuvastatin Calcium 20 mg 02/24/17 10:00 02/25/17 09:34 Crestor - PO 20 mg DAILY FRANKLYN Administration ASSESSMENT/PLAN: This is a 51 year old female with a past medical history of diabetes, htn, depression presented with fever, chills, n, v, found to be septic secondary to strep throat. #sepsis secondary to group A strep pharyngitis: -sepsis protocol activated; IVF; stat dose of IV antibiotics; lactic acid trended down after fluids -rapid strep test positive -blood and urine cultures prelim negative -white count stilll elevate, afebrile -continue with IV Levaquin 750mg qd -cephacol mm prn q6hr for throat pain #Abdominal pain : resolved #admits to dark stools x3 days -FOBT negative -rectal exam +for external hemorrhoids: no mass felt -she has never had colonoscopy; f.u as outpatient #NIDDM - HbA1c 10.9 -stated on levemir qd - NISS, and BGM at [facility] - diabetic diet #Depression - currently denies symptoms/SI or HI, monitor - depakote 500mg po bid - cogentin 2mg po bid - trilafon 4mg po bid #HTN - propranolol 20mg po bid - vasotec 5mg po daily - norvasc 5mg po daily #Hypothyroidism - levothyroxine 75mcg po daily #Obesity - provide healthy eating habits and exercise for diabetic pts upon discharge FEN: Fluids: po Electrolytes: wnl Diet: diabetic VTE prophylaxis: lovenox Disposition: IV antibiotic . trend white count Visit type - Emergency Visit Emergency Visit: Yes ED Registration Date: 02/23/17 Care time: The patient presented to the Emergency Department on the above date and was hospitalized for further evaluation of their emergent condition. - New Patient This patient is new to me today: No - Critical Care Critical Care patient: No
--- NOTE | 2017-02-25 16:37 | PN ---
Teaching Attending Note Name of Resident: Susana Perez ATTENDING PHYSICIAN STATEMENT I saw and evaluated the patient. I reviewed the resident's note and discussed the case with the resident. I agree with the resident's findings and plan as documented. SUBJECTIVE: Patient still has mild throat soreness but overall feels better. OBJECTIVE: Vital Signs Period Temp Pulse Resp BP Sys/Chou Pulse Ox Last 24 Hr 97.9 F-99.3 F 91-101 20-20 111-136/60-83 98-100 PHARYNX: Erythematous HEART: S1S2, RRR LUNGS: Clear ABDOMEN: Obese, soft, non-tender, non-distended, normal BS EXTREMITIES: No edema ASSESSMENT AND PLAN: This is a 51-year-old woman with a history of HTN, type 2 DM, depression who presented with fever and nausea. 1. Sepsis secondary to group A strep pharyngitis - WBC and temps improving - Continue Levaquin, IV fluid - Blood cultures negative after 48 hrs 2. Type 2 DM - Metformin held - HgbA1c 10.9 - Levemir started - Continue Novolog sliding scale 3. Depression - Continue Depakote, Trilafon, Cogentin 4. HTN - Continue Inderal, Norvasc, Vasotec 5. Hypothyroidism - Continue Synthroid 6. Obesity with BMI 34.3
[2017-02-26] MEDS: SODIUM CHLORIDE 1,000 ML IV SCH (02:00)
[2017-02-26] MEDS: INSULIN SLIDING SCALE (NOVOLOG) 1 VIAL SQ SCH ×2 (06:30→09:59)
[2017-02-26] MEDS: INSULIN DETEMIR 100 UNITS/ML MDV SQ SCH (06:34)
[2017-02-26] MEDS: LEVOTHYROXINE NA 50 MCG TABLET (FP) PO SCH (06:36)
[2017-02-26] MEDS: LEVOTHYROXINE NA 25 MCG TABLET (FP) PO SCH (06:37)
[2017-02-26 07:48] LABS: BASOPHIL 0.9 % (0-2.0); EOSINOPHIL 0.7 % (0-4.5); MCH 31.2 pg (25.7-33.7); MCHC 33.6 g/dl (32.0-36.0); MEAN PLT VOLUME 10.6 fl (7.5-11.1); NEUTROPHILS 51.9 % (42.8-82.8); PLATELET COUNT 185 K/MM3 (134-434); RDW 14.6 % (11.6-15.6); WHITE BLOOD COUNT 11.1 K/mm3 (4.0-10.0)
[2017-02-26 07:52] LABS: CALCIUM 8.7 mg/dL (8.5-10.1)
[2017-02-26 07:53] LABS: COCKROFT - GAULT 160.6415; CREATININE 0.6 mg/dL (0.55-1.02)
[2017-02-26] MEDS ORDERED: ROSUVASTATIN CA 10 MG TABLET (FP) ONE ×2 (09:41→09:42)
[2017-02-26] MEDS ORDERED: PT OWN MED DRAWER 7, Y5N ONE (09:42)
[2017-02-26] MEDS ORDERED: INSULIN (NOVOLOG) ASPART 100 UNITS/ML 10ML VIAL ONE (09:49)
[2017-02-26] MEDS: LEVOFLOXACIN 750 MG IVPB 150 ML IVPB SCH (09:51)
[2017-02-26] MEDS: amLODIPine BESYLATE 5 MG TABLET (FP) PO SCH (09:51)
[2017-02-26] MEDS: CALCIUM 500MG/VIT-D 200 UNITS COMBO TABLET (FP) PO SCH (09:52)
[2017-02-26] MEDS: PERPHENAZINE 4 MG TABLET PO SCH (09:52)
[2017-02-26] MEDS: PROPRANOLOL HCL 10 MG TABLET (FP) PO SCH (09:52)
[2017-02-26] MEDS: BENZTROPINE MESYLATE 2 MG TABLET PO SCH (09:52)
[2017-02-26] MEDS: DIVALPROEX SODIUM 500 MG TABLET E.C. PO SCH (09:52)
[2017-02-26] MEDS: ROSUVASTATIN CA 20 MG TABLET (FP) PO SCH (09:52)
[2017-02-26] MEDS: ENALAPRIL MALEATE 5 MG TABLET (FP) PO SCH (09:52)
[2017-02-26 14:23] VITALS: BP 111/78; PULSE 89; TEMP 98.1
--- NOTE | 2017-02-26 15:36 | DS ---
Physical Exam: SUBJECTIVE: Patient seen and examined, throat pain improved; afebrile overnight. White count trended down. Blood sugars controlled. OBJECTIVE: Vital Signs Period Temp Pulse Resp BP Sys/Chou Pulse Ox Last 24 Hr 97.3 F-98.4 F 89-92 16-20 111-128/73-84 98-98 PHYSICAL EXAM GENERAL: The patient is obese, awake, alert, and fully oriented, in no acute distress. HEAD: Normal with no signs of trauma. EYES: PERRL, extraocular movements intact, sclera anicteric, conjunctiva clear. ENT: Ears normal, nares patent, oropharynx clear without exudates, moist mucous membranes, less erythema and swelling; no white spots NECK: neck thickness LUNGS: Breath sounds equal, clear to auscultation bilaterally, no wheezes, no crackles, no accessory muscle use. HEART: Regular rate and rhythm, S1, S2 without murmur, rub or gallop. ABDOMEN: Soft, nontender, nondistended, normoactive bowel sounds, no guarding, no rebound, no hepatosplenomegaly, no masses. EXTREMITIES: 2+ pulses, warm, well-perfused, no edema. NEUROLOGICAL: Cranial nerves II through XII grossly intact. Normal speech, gait not observed. PSYCH: Normal mood, normal affect. SKIN: Warm, dry, normal turgor, no rashes or lesions noted. LABS Laboratory Results - last 24 hr 02/25/17 02/25/17 02/26/17 16:43 22:01 06:20 WBC 11.1 H D RBC 3.72 Hgb 11.6 Hct 34.6 MCV 93.0 MCHC 33.6 RDW 14.6 Plt Count 185 MPV 10.6 Neutrophils % 51.9 D Lymphocytes % 37.5 D Monocytes % 9.0 Eosinophils % 0.7 D Basophils % 0.9 Sodium Potassium Chloride Carbon Dioxide Anion Gap BUN Creatinine POC Glucometer 138 160 Random Glucose Calcium 02/26/17 02/26/17 02/26/17 06:20 06:29 09:56 WBC RBC Hgb Hct MCV MCHC RDW Plt Count MPV Neutrophils % Lymphocytes % Monocytes % Eosinophils % Basophils % Sodium 141 Potassium 4.4 Chloride 103 Carbon Dioxide 29 Anion Gap 9 BUN 7 D Creatinine 0.6 POC Glucometer 140 159 Random Glucose 144 H Calcium 8.7 HOSPITAL COURSE: Date of Admission:02/23/17 Date of Discharge: 02/26/17 This is a 51 year old female with a past medical history of diabetes, hypertensiondepression presented with fever, chills, n, v, found to be septic secondary to strep throat. Responded to levaquin. Blood sugars uncontrolled, started on insulin pen. #sepsis secondary to group A strep pharyngitis: resolved -sepsis protocol activated; -rapid strep test positive -blood and urine cultures prelim negative -started on IV levaquin 750mg daily -white count trended down remained afebrile -continue withpo levaquin at home for a total of 7 days #Abdominal pain with dark stool: resolved -labs normal; -ultrasound normal -blood counts stable -FOBT negative -advised to follow up with GI for colonoscopy #Diabetes Mellitus - HbA1c 10.9 -stated on levemir 12U pen qd - diabetic diet/ exercise counseling #Depression - denied symptoms/SI or HI, monitor - depakote 500mg po bid - cogentin 2mg po bid - trilafon 4mg po bid #HTN - propranolol 20mg po bid - vasotec 5mg po daily - norvasc 5mg po daily #Hypothyroidism - levothyroxine 75mcg po daily #Obesity - provide healthy eating habits and exercise for diabetic pts upon discharge Disposition:follow up with primary with in one week. Minutes to complete discharge: 35 Discharge Summary Reason For Visit: FEVER; HYPERGLYCEMIA; SEPSIS Current Active Problems Diabetes 1.5, managed as type 2 (Acute) Hyperglycemia (Acute) Sepsis (Acute) Strep pharyngitis (Acute) Condition: Improved - Instructions Diet, Activity, Other Instructions: Ms Antunez, you have been diagnosed with strep throat. Please continue to take your antibiotic as recommended. Also, your blood sugars have been significantly elevated and we are starting you on an insulin pen. Use as directed. There will be an visiting nurse coming to your house to assist you in applying the pen if you have any questions. Stop taking metformin, you will no longer need it now that you are using the insulin. Please follow up with your primary care physician with on one week to monitor your blood sugars. Please continue to maintain a proper diabetic diet and follow up with a diet and exercise program. If you experience any worsening of symptoms, including fever, chills, worsening sore throat, please return to the emergency room. Referrals: Jaja Brewer MD [Primary Care Provider] - Disposition: HOME - Home Medications Comprehensive Discharge Medication List: Ambulatory Orders Amlodipine Besylate [Norvasc -] 5 mg PO DAILY 02/23/17 Benztropine Mesylate [Cogentin -] 2 mg PO BID 02/23/17 Calcium Carbonate/Vitamin D3 [Calcium 600+D Softgel] 1 each PO BID 02/23/17 Cholecalciferol (Vitamin D3) [Vitamin D3] 50,000 unit PO WEEKLY 02/23/17 Divalproex Sodium 500 mg PO BID 02/23/17 Enalapril Maleate [Vasotec -] 5 mg PO DAILY 02/23/17 Levothyroxine Sodium [Levo-T] 25 mcg PO DAILY 02/23/17 Levothyroxine [Synthroid -] 50 mcg PO DAILY 02/23/17 Perphenazine [Trilafon -] 4 mg PO BID 02/23/17 Propranolol HCl [Inderal -] 20 mg PO BID 02/23/17 Rosuvastatin Calcium [Crestor] 20 mg PO DAILY 02/23/17 Insulin (Levemir) [Levemir Flexpen -] 12 units SQ DAILY #1 pen 02/26/17 Levofloxacin [Levaquin -] 500 mg PO DAILY #3 tablet 02/26/17 Pen Needle, Diabetic [1St Tier Unifine Pentips Plus] 1 each [facility] DAILY #1 dis.needle 02/26/17 This patient is new to me today: No Emergency Visit: Yes ED Registration Date: 02/23/17 Care time: The patient presented to the Emergency Department on the above date and was hospitalized for further evaluation of their emergent condition. Critical Care patient: No - Discharge Referral Referred to [facility] Med P.C.: No
--- NOTE | 2017-02-26 16:19 | PN ---
Teaching Attending Note Name of Resident: Susana Perez ATTENDING PHYSICIAN STATEMENT I saw and evaluated the patient. I reviewed the resident's note and discussed the case with the resident. I agree with the resident's findings and plan as documented. SUBJECTIVE: OBJECTIVE: Vital Signs Period Temp Pulse Resp BP Sys/Chou Pulse Ox Last 24 Hr 97.3 F-98.4 F 89-92 16-20 111-128/73-84 98-98 ASSESSMENT AND PLAN:
[2017-03-01] MEDS ORDERED: ERGOCALCIFEROL (VITAMIN D2) 50,000 UNIT CAPSULE (FP) PO SCH (10:00)
== END 2017-02-26 15:59 | disposition home or self-care (01) | DRG 720 ==
LOC: JER 15:23 → JERBED 18:26 → J6S 21:47
PROVIDERS: ADMIT Internal Medicine; ATTEND Internal Medicine
DX: A41.9 Sepsis, unspecified organism (principal); J02.0 Streptococcal pharyngitis; E11.65 Type 2 diabetes mellitus with hyperglycemia; Z79.84 Long term (current) use of oral hypoglycemic drugs; F32.9 Major depressive disorder, single episode, unspecified; I10 Essential (primary) hypertension; E03.9 Hypothyroidism, unspecified; E66.9 Obesity, unspecified; Z68.34 Body mass index [BMI] 34.0-34.9, adult; Z71.3 Dietary counseling and surveillance
CPT/HCPCS: 36415; 71010-TC; 80048; 80053; 81003; 81015; 82009; 82272; 82550; 82553; 83036; 83605; 83735; 83930; 84100; 84484; 85025; 85610; 85730; 87040; 87070; 87076; 87077; 87086; 87254; 87430; 87804; 93005; 93010; 99285-25

== ENCOUNTER 2024-06-16 12:04 | Emergency (ER) | payer OTHER ==
[2024-06-16 12:13] VITALS: BMI 31.6
[2024-06-16 13:32] LABS: HEMATOCRIT 41.6 % (32.4-45.2); HEMOGLOBIN 13.6 GM/dL (10.7-15.3); MCH 27.8 pg (25.7-33.7); MCHC 32.6 g/dl (32.0-36.0); MEAN CELL VOLUME 85.2 fl (80-96); PLATELET COUNT 292 10^3/uL (134-434); RBC 4.88 M/mm3 (3.60-5.2); RDW 15.4 % (11.6-15.6); WHITE BLOOD COUNT 28.7 K/mm3 (4.0-10.0)
[2024-06-16 13:54] LABS: POTASSIUM 4.3 mmol/L (3.5-5.1)
[2024-06-16 13:58] LABS: BLOOD UREA NITROGEN 7.5 mg/dL (7-18); CALCIUM 9.3 mg/dL (8.5-10.1)
[2024-06-16 13:59] LABS: ALBUMIN 3.2 g/dl (3.4-5.0)
[2024-06-16 14:01] LABS: CREATININE 0.9 mg/dL (0.55-1.3)
[2024-06-16 14:03] LABS: BILIRUBIN,TOTAL 0.5 mg/dL (0.2-1)
[2024-06-16 14:13] LABS: ANISOCYTOSIS 0; MACROCYTOSIS 0
[2024-06-16 14:15] LABS: PLATELET ESTIMATE ADEQUATE
[2024-06-16] MEDS: SODIUM CHLORIDE 1,000 ML IV STA (14:49)
[2024-06-16 17:19] VITALS: RESP 16
[2024-06-16 18:24] VITALS: BP 103/66; PULSE 121; TEMP 98.7
== END 2024-06-16 18:30 | disposition short-term general hospital (02) ==
LOC: JER 12:04
PROC: 3E0337Z Introduction of Electrolytic and Water Balance Substance into Peripheral Vein, Percutaneous Approach (ICD-10-PCS; principal; 2024-06-16)
DX: R21 Rash and other nonspecific skin eruption (principal); L29.9 Pruritus, unspecified
CPT/HCPCS: 36415; 71045-TC-FY; 80053; 84443; 84484; 85025; 85651; 86140; 93005; 93010; 99285-25

== ENCOUNTER 2025-02-19 10:08 | Inpatient (IN) | payer OTHER ==
[2025-02-19] MEDS ORDERED: ALBUTEROL SO4 2.5/IPRATROPIUM 0.5 INH SOL 3 ML VIAL.NEB. NEB ONE (11:39)
[2025-02-19] MEDS: ALBUTEROL SO4 2.5/IPRATROPIUM 0.5 INH SOL 3 ML VIAL.NEB. NEB SCH (11:44)
[2025-02-19 12:27] LABS: ABSOLUTE IMMATURE GRANULOCYTES 0.21 x10^3/uL (0.0-0.031); BASOPHILS # 0.05 x10^3/uL (0.01-0.08); EOSINOPHIL % 0.2 % (0.7-5.8); EOSINOPHILS # 0.02 x10^3/uL (0.04-0.36); HEMATOCRIT 34.7 % (34.1-44.9); HEMOGLOBIN 11.6 g/dL (11.2-15.7); MCHC 33.4 g/dl (32.2-35.5); MEAN CELL VOLUME 86.5 fl (79.4-94.8); MEAN PLT VOLUME 10.9 fl (9.4-12.3); MONOCYTE # 0.88 x10^3/uL (0.24-0.86); MONOCYTE % 7.1 % (4.7-12.5); PLATELET COUNT 286 x10^3/uL (182-369); RDW 13.9 % (12.3-16.6)
[2025-02-19 12:35] LABS: INR 1.19 (0.83-1.09)
[2025-02-19 12:36] LABS: EPI CELLS >36 /uL (0-25.1); HYALINE CASTS 1 /uL (0-3.1); URINE APPEARANCE CLEAR; URINE BACTERIA 444 /uL (0-1359); URINE BILIRUBIN NEGATIVE (NEGATIVE); URINE COLOR YELLOW; URINE GLUCOSE (UA) 3+ (NEGATIVE); URINE KETONE 1+ (NEGATIVE); URINE LEUK ESTERASE NEGATIVE (NEGATIVE); URINE NITRITE NEGATIVE (NEGATIVE); URINE PROTEIN 1+ (NEGATIVE); URINE RBC 19 /uL (0-23.9); URINE UROBILINOGEN 0.2 mg/dL (0.2-1.0); URINE WBC 5 /uL (0-25.8)
[2025-02-19 12:38] LABS: ACTIVATED PTT 31.1 SECONDS (25.2-36.5)
[2025-02-19 12:44] LABS: POTASSIUM 4.9 mmol/L (3.5-5.1)
[2025-02-19 12:47] LABS: CALCIUM 9.5 mg/dL (8.5-10.1)
[2025-02-19 12:48] LABS: ALBUMIN 2.9 g/dl (3.4-5.0); MAGNESIUM 1.3 mg/dL (1.8-2.4)
[2025-02-19 12:51] LABS: CREATININE 0.8 mg/dL (0.55-1.3)
[2025-02-19 12:52] LABS: BILIRUBIN,TOTAL 0.2 mg/dL (0.2-1); TOT PROT 7.5 g/dl (6.4-8.2)
[2025-02-19 12:58] LABS: LACTIC ACID 4.9 mmol/L (0.4-2.0)
[2025-02-19] MEDS: SODIUM CHLORIDE 0.9% 500 ML INFUS.BAG IV ONE ×3 (13:26→19:30)
[2025-02-19] MEDS ORDERED: CEFTRIAXONE 1 G/50 ML PREMIX 50 ML IVPB ONE (13:30)
[2025-02-19] MEDS: CEFTRIAXONE 1,000 MG in DEXTROSE 5%-WATER - 50 ML IVPB ONE (13:34)
[2025-02-19] MEDS ORDERED: ACETAMINOPHEN INJECTION 100 ML ONE (14:16)
[2025-02-19] MEDS: ACETAMINOPHEN 1000 MG/100 ML BAG IVPB ONE (14:20)
[2025-02-19] MEDS ORDERED: AZITHROMYCIN IVPB 500 MG/250 ML BAG IVPB ONE (15:05)
[2025-02-19] MEDS: AZITHROMYCIN IVPB 500 MG in DEXTROSE 5%-WATER - 250 ML IVPB ONE (15:15)
[2025-02-19 18:04] LABS: LACTIC ACID 3.3 mmol/L (0.4-2.0)
[2025-02-19] MEDS ORDERED: MAGNESIUM SULFATE IN WATER 2 GM/50 ML IVPB IVPB ONE (22:58)
[2025-02-19] MEDS: MAGNESIUM SULFATE IN WATER 2 GM/50 ML IVPB IVPB ONE (23:04)
[2025-02-20 01:25] VITALS: BMI 35.7
[2025-02-20] MEDS: ACETAMINOPHEN 325 MG TABLET (FP) PO PRN (02:59)
[2025-02-20] MEDS: levoFLOXacin 500 MG, levoFLOXacin 250 MG PO SCH (08:11)
[2025-02-20] MEDS: INSULIN GLARGINE (LANTUS) 100 UNITS/ML UNITS SQ SCH (09:32)
[2025-02-20] MEDS: DIVALPROEX SODIUM 500 MG TABLET E.C. PO SCH (09:32)
[2025-02-20] MEDS: BENZTROPINE MESYLATE 2 MG TABLET PO SCH ×2 (10:21→21:13)
[2025-02-20] MEDS: PERPHENAZINE 4 MG TABLET PO SCH (10:23)
[2025-02-20] MEDS: ENOXAPARIN NA (PORCINE) 40 MG/0.4 ML DISP.SYRIN SQ SCH (10:34)
[2025-02-20] MEDS: ENALAPRIL MALEATE 5 MG TABLET PO SCH ×2 (10:37→11:41)
[2025-02-20] MEDS: ALBUTEROL SO4 2.5/IPRATROPIUM 0.5 INH SOL 3 ML VIAL.NEB. NEB PRN (20:47)
[2025-02-20] MEDS: ROSUVASTATIN CA 20 MG TABLET PO SCH (21:08)
[2025-02-20] MEDS: INSULIN ASPART SLIDING SCALE (NOVOLOG) 1 VIAL SQ SCH (21:50)
[2025-02-21 09:14] LABS: HEMATOCRIT 32.8 % (34.1-44.9); HEMOGLOBIN 10.6 g/dL (11.2-15.7); MCHC 32.3 g/dl (32.2-35.5); MEAN CELL VOLUME 88.2 fl (79.4-94.8); MEAN PLT VOLUME 10.5 fl (9.4-12.3); PLATELET COUNT 334 x10^3/uL (182-369); RDW 14.5 % (12.3-16.6)
[2025-02-21 09:55] LABS: POTASSIUM 4.5 mmol/L (3.5-5.1)
[2025-02-21 10:05] LABS: ALBUMIN 2.5 g/dl (3.4-5.0)
[2025-02-21 10:06] LABS: BILIRUBIN,TOTAL 0.2 mg/dL (0.2-1); TOT PROT 6.5 g/dl (6.4-8.2)
[2025-02-21 10:07] LABS: BLOOD UREA NITROGEN 6.7 mg/dL (7-18)
[2025-02-21 10:08] LABS: CREATININE 0.7 mg/dL (0.55-1.3); PHOSPHOROUS 3.3 mg/dL (2.5-4.9)
[2025-02-21 10:11] LABS: CALCIUM 9.4 mg/dL (8.5-10.1); MAGNESIUM 1.5 mg/dL (1.8-2.4)
[2025-02-21] MEDS: LEVOTHYROXINE NA 25 MCG TABLET (FP) PO SCH (10:21)
[2025-02-21] MEDS: LEVOTHYROXINE NA 50 MCG TABLET (FP) PO SCH (10:21)
[2025-02-21 10:22] VITALS: RESP 18
[2025-02-21] MEDS: methylPREDNISolone NA SUCC 40 MG/1 ML VIAL IVPUSH SCH (10:23)
[2025-02-21] MEDS: OLANZapine 5 MG TABLET PO SCH (10:23)
[2025-02-21] MEDS: INSULIN GLARGINE (LANTUS) 100 UNITS/ML UNITS SQ SCH (10:23)
[2025-02-21] MEDS: LEVOTHYROXINE NA 75 MCG TABLET (FP) PO SCH (11:37)
[2025-02-21] MEDS: MAGNESIUM 2GM/50ML STERILE WATER IVPB IVPB ONE (15:54)
[2025-02-22 09:53] VITALS: BP 148/85; PULSE 103; TEMP 97.5
== END 2025-02-22 13:56 | disposition home or self-care (01) | DRG 720 ==
LOC: JER 10:08 → JERBED 22:17 → J5S 02-20 00:51
PROVIDERS: ADMIT Hospitalist
DX: A41.9 Sepsis, unspecified organism (principal); S22.088A Other fracture of T11-T12 vertebra, initial encounter for closed fracture; J18.9 Pneumonia, unspecified organism; F20.9 Schizophrenia, unspecified; E87.20 Acidosis, unspecified; E87.1 Hypo-osmolality and hyponatremia; E78.00 Pure hypercholesterolemia, unspecified; E11.9 Type 2 diabetes mellitus without complications; E03.9 Hypothyroidism, unspecified; I10 Essential (primary) hypertension; W01.0XXA Fall on same level from slipping, tripping and stumbling without subsequent striking against object, initial encounter; Y93.89 Activity, other specified; Y99.8 Other external cause status; Y92.009 Unspecified place in unspecified non-institutional (private) residence as the place of occurrence of the external cause
CPT/HCPCS: 0241U-QW; 36415; 70450-TC; 71045-TC-FY; 71275-TC; 74177-TC; 80053; 81003; 82550; 82962; 83605; 83735; 83880; 84100; 84481; 84484; 85025; 85027; 85379; 85610; 85730; 86850; 86900; 86901; 87040; 87070; 87077; 87086; 87205; 87899; 93005; 93010; 93308; 94640; 97116-GP; 97161-GP; 99285-25; J0131